=== PATIENT | female | born 1990 | race Caucasian/White ===

== ENCOUNTER 2017-02-27 08:04 | Emergency (ER) | payer OTHER ==
[2017-02-27 09:17] LABS: ABSOLUTE EOSINOPHILS # (AUTO) 0.2 10^3/uL (0.0-0.6); ABSOLUTE LYMPHOCYTES (AUTO) 1.7 10^3/uL (0.5-4.7); ABSOLUTE MONOCYTES (AUTO) 0.4 10^3/uL (0.1-1.4); ABSOLUTE NEUT (AUTO) 5.7 10^3/uL (1.7-8.2); BASOPHILS % (AUTO) 0.4 % (0-2); EOSINOPHILS % (AUTO) 2.4 % (0-6); HEMATOCRIT 37.7 % (36.0-47.0); HGB HCT DIFFERENCE 1.3; MEAN CORPUSCULAR HEMOGLOBIN 28.7 pg (27.0-33.4); MEAN CORPUSCULAR HGB CONC 34.5 g/dL (32.0-36.0); MEAN CORPUSCULAR VOLUME 83 fl (80-97); MONOCYTES % (AUTO) 4.7 % (3-13); RED BLOOD COUNT 4.54 10^6/uL (3.72-5.28); RED CELL DISTRIBUTION WIDTH 13.4 % (11.5-14.0); SEGMENTED NEUTROPHILS % (AUTO) 71.5 % (42-78)
--- NOTE | 2017-02-27 09:38 | ER Document Report ---
ED Body Fluid Exposure - General Chief Complaint: Needle Stick Exposure Stated Complaint: RIGHT HAND INJURY Time Seen by Provider: 02/27/17 08:30 Mode of Arrival: Ambulatory Information source: Patient Notes: Patient is a 27-year-old white female comes to emergency room from her place of work. 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 Patient states that she was cleaning up some surgical trace in the periodontal office when a Came off a needle used for injecting Novocain into the cheek. Patient states that she set the tray down she felt a sharp stinging and noticed that her right thumb had encountered a needle stick and the area was bleeding. Patient states that she was cleaning up a total of 2 rooms with 2 other dental hygienist had worked and she is uncertain as to which tray the needle belonged to sew our source of the stick is unknown and likelihood of finding and testing is very slim. Patient did state that they have tried to narrow it down to 2 patient's one is a younger female and the other is older female and they did review the information sheets from the patient's and neither of them had checked HIV hepatitis B or hepatitis C as positives. TRAVEL OUTSIDE OF THE [place] IN LAST 30 DAYS: No - HPI Patient complains to provider of: Needlestick Exposure: Penetrating Occurred: Yesterday Where did incident occur: At work Quality of pain: No pain Severity: None Pain Level: Denies Context: Needle stick (hollow) Is patient an employee: No Referred to employee health: No Past Medical History - General Information source: Patient - Social History Smoking Status: Never Smoker Chew tobacco use (# tins/day): No Frequency of alcohol use: None Drug Abuse: None Lives with: Family Family History: Reviewed & Not Pertinent Patient has suicidal ideation: No Patient has homicidal ideation: No - Past Medical History Cardiac Medical History: Reports: None Pulmonary Medical History: Reports: None EENT Medical History: Reports: None Neurological Medical History: Reports: None Endocrine Medical History: Reports: None Renal/ Medical History: Reports: None. Denies: Hx Peritoneal Dialysis Malignancy Medical History: Reports: None GI Medical History: Reports: None Musculoskeltal Medical History: Reports None Skin Medical History: Reports Other - Puncture wound right thumb Review of Systems - Review of Systems Constitutional: No symptoms reported EENT: No symptoms reported Cardiovascular: No symptoms reported Respiratory: No symptoms reported Gastrointestinal: No symptoms reported Genitourinary: No symptoms reported Female Genitourinary: No symptoms reported Musculoskeletal: No symptoms reported Skin: See HPI Hematologic/Lymphatic: No symptoms reported Neurological/Psychological: No symptoms reported -: Yes All other systems reviewed and negative Physical Exam - Vital signs Vitals: Temp Pulse Resp BP Pulse Ox 98.8 F 93 16 129/84 H 98 02/27/17 08:08 02/27/17 08:08 02/27/17 08:08 02/27/17 08:08 02/27/17 08:08 Interpretation: Hypertensive - General General appearance: Appears well - Respiratory Respiratory status: No respiratory distress Breath sounds: Normal. No: Decreased air movement, Nonproductive cough, Productive cough, Rales, Rhonchi, Stridor, Wheezing, Other - Cardiovascular Rhythm: Regular Heart sounds: Normal auscultation Murmur: No - Extremities General upper extremity: Normal inspection General lower extremity: Normal inspection Hand: Normal, No evidence of FB. No: Nontender, Tender, Abrasion, Deformity, Dislocation, Ecchymosis, Instability, Nail injury, Laceration, No evidence of human bite, Swelling, Tendon deficit, Other - Neurological Neuro grossly intact: Yes Cognition: Normal Orientation: AAOx4 [place] Coma Scale Eye Opening: Spontaneous [place] Coma Scale Verbal: Oriented [place] Coma Scale Motor: Obeys Commands Casandra Coma Scale Total: 15 Speech: Normal - Skin Skin Temperature: Warm Skin Moisture: Dry Skin Color: [place], Pale, Other - Examination of patient's injured area which is the right thumb anterior portion right at the crease of the joint. Visual Examination of the area on the right thumb shows no swelling no erythema no tenderness to palpation has full range of motion with flexion extension at the joint space. Inspection under direct lady does not show any type of a tracking pattern for completeness. Again there is no visual sign of the needlestick area. Course - Vital Signs Vital signs: Temp Pulse Resp BP Pulse Ox 98.8 F 93 16 129/84 H 98 02/27/17 08:08 02/27/17 08:08 02/27/17 08:08 02/27/17 08:08 02/27/17 08:08 - Laboratory Result Diagrams: 02/27/17 09:00 02/27/17 09:00 Laboratory results interpreted by me: 02/27/17 09:00 Chloride 109 H Carbon Dioxide 21 L - Transfer of Care Notes: 02/27/17 09:41 As stated patient is a 27-year-old female with a needlestick of an unknown source. Patient's clientele are are more uptrend can have low suspicion for any type of transmittable disease. Per patient reading patient's charts at her facility about the possibility of water to patient she believes may have encountered she states both were negative. One was a younger girl and the other was an older person. She believes the likelihood of them carry any type of hepatitis and/or HIV is very slim. It is impossible at this time to be able to choose which person it was for testing so we do not have a source for testing purposes. I explained to her this is slightly higher risk. I have gone through the treatment regimes for hepatitis and HIV prophylaxis patient believes her hepatitis B profile is up-to-date and she is immune. 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 As for the HIV testing we have used the EMR a antibiotic guide by Adrian White which is a standard usage and ER at this time according to the recommendation of information provided to the exposed person risk of developing a serological evidence of HPV via percutaneous exposure shows a if blood source is positive for hepatitis B and she has a 23-37% chance of adithya the hep B. I have explained the dosages to patient she was still firmly believes that she is immune at this point with antibodies present. As for post exposure that I have given her the side effect profile of each of the drugs which in essence contain multiple possibilities including nausea vomiting diarrhea severe abdominal pain fatigue etc. I have offered this to the patient we have discussed in length patient feels at this time she does not want to go through prophylaxis treatment. So we will be discharging patient back to her workplace. She will also need follow-up in 6 months and a year for HIV and hepatitis testing. I have explained this to her and she will follow-up with doing her work place decides. Since we are running testing on this patient only today I have not go to hold her in the ER for results. For exposing risk of infectious transmission of HIV according to the guide risk of transmission of hepatitis C from a hepatitis C source known is 1.8% risk of transmission of HIV from an HIV-positive source and percutaneous exposure is 0.3% chance mucous membrane exposure 0.09% injuries with a hollow bore needle as well as those from sources with a high viral load placed to expose person to a higher risk factor. I have offered patient the treatment regime for HIV which is the 3 02/27/17 10:32 As stated above we discussed all options with patient again offered to do the prophylaxis for HIV hepatitis. Patient still insists that she does not want any treatment at this time. I have informed her that she will need repeat labs in 6 months and 1 year on her HIV and hepatitis profiles. Patient understands. I will also written this on her worker's comp paperwork so that is documented for her and currently there are no restrictions for her at work. Discharge - Discharge Clinical Impression: Accidental needlestick injury with exposure to body fluid Condition: Good Disposition: HOME, SELF-CARE Instructions: Puncture Wound ([facility]), Body Fluid Exposure ([facility]) Additional Instructions: As we have discussed we talked about the post exposure prophylaxis for needlestick. I have also explained to you that you will need follow-up in 6 months and 1 year to recheck blood work. This she should work out with your employer. At this time I will place you on some Keflex for wound prophylaxis. Friday you can contact this #[phone] and that will have the results of your blood work. Given the fact that we are not proceeding any of those to come back positive again repeat labs in 6 months in a year as we discussed the risk of transmission of HIV from an HIV positive source for a percutaneous exposure is 0.3% mucous membrane is less than that of 0.09% but injuries to all needle raised that slightly. Given that you have confidence that the patient's vitals were reasonably healthy individuals I agree with your decision at this point not to do antivirals. Again the option was left open to you and your decision not to take the prophylaxis is understood and we will be documenting that. Should you have any concerns or problems return back to ER for a recheck or contact your workers comp physician for continued follow-up in 6 months in 1 year. As we also discussed I am giving you a phone number to contact on Friday that will have your blood work results or he may come by medical records and medicinal plant picker a copy. That telephone number is [phone] Prescriptions: Cephalexin Monohydrate [Keflex 500 mg Capsule] 500 mg PO Q6H #28 capsule Fluconazole [Diflucan] 150 mg PO ONCE PRN #1 tablet PRN Reason: Forms: Elevated Blood Pressure, Parent Work Note
[2017-02-27 09:49] LABS: ALANINE AMINOTRANSFERASE 27 U/L (9-52); ALKALINE PHOSPHATASE 68 U/L (38-126); ANION GAP 12 (5-19); ASPARTATE AMINO TRANSFERASE 14 U/L (14-36); BILIRUBIN,DIRECT 0.2 mg/dL (0.0-0.4); BILIRUBIN,TOTAL 0.3 mg/dL (0.2-1.3); BLOOD UREA NITROGEN 12 mg/dL (7-20); CARBON DIOXIDE 21 mmol/L (22-30); CHLORIDE 109 mmol/L (98-107); CREATININE RESULT 0.75 mg/dL (0.52-1.25); GLUCOSE 100 mg/dL (75-110); POTASSIUM 4.2 mmol/L (3.6-5.0); SODIUM 141.9 mmol/L (137-145); TOTAL PROTEIN 6.5 g/dL (6.3-8.2)
[2017-02-27 10:29] LABS: ADD HIVPANEL? NO; HIV (1 AND 2) ANTIBODY NEGATIVE (NEGATIVE)
[2017-02-27 11:05] VITALS: BP 117/80
== END 2017-02-27 11:05 | disposition home or self-care (01) ==
LOC: ER 08:04
DX: S61.031A Puncture wound without foreign body of right thumb without damage to nail, initial encounter (principal); W46.1XXA Contact with contaminated hypodermic needle, initial encounter; Y93.89 Activity, other specified; Y92.531 Health care provider office as the place of occurrence of the external cause; Y99.0 Civilian activity done for income or pay
CPT/HCPCS: 36415; 80053; 80074; 85025; 86701; 99283

== ENCOUNTER 2019-10-20 11:13 | Emergency (ER) | payer OTHER ==
[2019-10-20 11:28] VITALS: BP 139/92
[2019-10-20] MEDS ORDERED: CIPROFLOXACIN HCL/DEXAMETH OTIC DROP 7.5 ML AD ONE (11:40)
[2019-10-20] MEDS ORDERED: HYDROCODONE/ACETAMINOPHEN 5-325 MG TABLET PO ONE (11:40)
--- NOTE | 2019-10-20 11:42 | ER Document Report ---
HPI - HPI Patient complains to provider of: Right ear pain Time Seen by Provider: 10/20/19 11:29 Onset: Other - 3 days Onset/Duration: Worse Quality of pain: Sharp Pain Level: 4 Context: She presents with right ear pain for the past 2 days. Patient reports low-grade fever at home. Patient states symptoms have worsened despite use of antibiotics. Associated Symptoms: Earache, Fever Exacerbated by: Denies Relieved by: Denies Similar symptoms previously: Yes Recently seen / treated by doctor: Yes - ROS ROS below otherwise negative: Yes Systems Reviewed and Negative: Yes All other systems reviewed and negative - CONSTITUTIONAL Constitutional: REPORTS: Fever - EENT EENT: REPORTS: Ear Pain. DENIES: Sore Throat - NEURO Neurology: DENIES: Headache - GASTROINTESTINAL Gastrointestinal: DENIES: Nausea - DERM Skin Color: Normal Skin Problems: None Past Medical History - General Information source: Patient - Social History Smoking Status: Never Smoker Frequency of alcohol use: Occasional Drug Abuse: None Occupation: Dental administrative support assistant Lives with: Family Family History: Reviewed & Not Pertinent - Medical History Medical History: Negative Renal/ Medical History: Denies: Hx Peritoneal Dialysis Surgical Hx: Negative Vertical Provider Document - CONSTITUTIONAL Agree With Documented VS: Yes Exam Limitations: No Limitations General Appearance: WD/WN, No Apparent Distress - INFECTION CONTROL TRAVEL OUTSIDE OF THE [place] IN LAST 30 DAYS: No - HEENT HEENT: Atraumatic, Normocephalic Notes: Pain with movement of right helix, right external auditory canal almost completely closed due to swelling, patient with tender preauricular node, no mastoid tenderness or swelling - NECK Neck: Normal Inspection, Supple. negative: Lymphadenopathy-Left, Lymphadenopathy-Right - RESPIRATORY Respiratory: Breath Sounds Normal, No Respiratory Distress - CARDIOVASCULAR Cardiovascular: Regular Rate, Regular Rhythm - MUSCULOSKELETAL/EXTREMETIES Musculoskeletal/Extremeties: MAEW - NEURO Level of Consciousness: Awake, Alert, Appropriate Motor/Sensory: No Motor Deficit - DERM Integumentary: Warm, Dry Course - Re-evaluation Re-evalutation: 10/20/19 Patient presents with acute otitis media. Patient has preauricular lymphadenopathy, no mastoid tenderness or swelling, no periauricular cellulitis appreciated. Patient's external auditory canal is completely swollen, ear wick was placed and medication was administered. Patient states that she could feel the medication actually getting further in her ear after instillation. Patient educated on proper way to administer the medication. Discussed worsening symptoms that she should return immediately for. Patient verbalized understanding and is agreeable with discharge plan of care. - Vital Signs Vital signs: Temp Pulse Resp BP Pulse Ox 98.7 F 87 18 139/92 H 100 10/20/19 11:18 10/20/19 11:18 10/20/19 11:18 10/20/19 11:18 10/20/19 11:18 Discharge - Discharge Clinical Impression: Right otitis media Qualifiers: Otitis media type: unspecified Qualified Code(s): H66.91 - Otitis media, unspecified, right ear Condition: Stable Disposition: HOME, SELF-CARE Instructions: Using Ear Drops with a Wick ([facility]), Oral Narcotic Medication ([facility]), Otitis Media ([facility]) Additional Instructions: Continue to use eardrops as prescribed Return for any new or worsening symptoms Follow-up with hearing aid specialist for recheck. Prescriptions: Hydrocodone/Acetaminophen [[place] 5-325 mg Tablet] 1 tab PO Q6 PRN #15 tablet PRN Reason: Forms: Return to Work Referrals: [facility] [Provider Group] - Follow up as needed
== END 2019-10-20 12:05 | disposition home or self-care (01) ==
LOC: ER 11:13
DX: H66.91 Otitis media, unspecified, right ear (principal); H92.01 Otalgia, right ear; R50.9 Fever, unspecified
CPT/HCPCS: 99282; 36415; 87205; 87070; 87077; J3490; 87186